=== PATIENT | female | born 1960 | race Hispanic/Latino ===

== ENCOUNTER 2025-03-21 07:49 | Emergency (ER) | payer OTHER ==
--- OUTSIDE RECORDS SUMMARY | 2025-03-21 07:54 | XMS REPORT | Continuity of Care Document ---
Author Name Unknown Address [address] [place] [address]. [address] [place] [address] [facility] Address [address] [facility]. 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 Name Role Phone HARI MANUEL Primary Care Physician Unavailab TATYANA Estes Attending Clinician Unavailable [id number] Attending Clinician Unavailable RAFAL COURTNEY Attending Clinician Unavailable LAB90 Attending Clinician Unavailable BROCK STEINER Attending Clinician Unavailable CYNDEE ROSS Attending Clinician Unava ilDESMOND Saavedra Attending Clinician Unavailable [email or web address] Attending Clinician Unavailcourt Morales MD, Cynthia Dowell Attending Clinician [phone] Radiology Attending Clinician Unavailable RADIOLOGY Attending Clinician Unavailable Doctor Unassigned, [place] Attending Clinician U navailable [email or web address] Admitting Clinician Unavailcourt kim Payers Payer Name Policy Type Policy Number Effective Date Expirati on Date Source AETNA CATHERINE PPO 5 [id number] 2025 00:00:00 AETNA 2 [id number] 2022 00:00:00 AETNA [id number] AETNA CHOICE POS II [id number] 2018 00:00:00 Problems Condition Name Condition Details Condition Category Status Onset Date Resolution Date Last Treatment Date Treating Clinician Comments Source Neuropathy Neuropathy Disease Active 2025-0 8-12 00:00: 00 Kendra Paez - Externa jeane Lipoma of right lower extremity Lipoma of right lower extremity Disease Active 3-04 00:00: 00 Kendra Paez - Externa jeane Pain of right hip Pain of right hip Disease Active 8 00:00: 00 Kendra Paez - Externa jeane Pain of right hip Pain of right hip Disease Active 01-27 00:00: 00 Kendra Mosquera Externa jeane Elevated liver function tests Elevated liver function tests Disease Active 8 00:00: 00 Kendra Paez - Externa jeane Well adult exam Well adult exam Disease Active 01-27 00:00: 00 Kendra Mosquera Externa jeane Vaginal atrophy Vaginal atrophy Disease Active 11-03 00:00: 00 [facility] Depression , unspecifie d depression type Depression , unspecifie d depression type Disease Active 11-03 00:00: 00 [facility] Well woman exam with routine gynecologi alonzo exam Well woman exam with routine gynecologi alonzo exam Disease Active 11-03 00:00: 00 [facility] Type 2 diabetes mellitus without complicati on Type 2 diabetes mellitus without complicati on Disease Active 10-02 00:00: 00 [facility] Elevated liver enzymes Elevated liver enzymes Disease Active 03-21 00:00: 00 [facility] Diabetes mellitus type 2, uncontroll ed, without complicati ons Diabetes mellitus type 2, uncontroll ed, without complicati ons Disease Active 10-17 00:00: 00 Overview: ICD10 Diagnosis Term 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 [facility] HLD (hyperlipi demia) HLD (hyperlipi demia) Disease Active 10-17 00:00: 00 [facility] Metabolic syndrome X Metabolic syndrome X Disease Active 10-17 00:00: 00 [facility] DM type 2 with diabetic mixed hyperlipid emia (multi HCC) DM type 2 with diabetic mixed hyperlipid emia (multi HCC) Disease Active Kendra Seybold - Externa l Vitamin D deficiency Vitamin D deficiency Disease Active Kendra Seybold - Externa l Fatty liver Fatty liver Disease Active Kendra Seybold - Externa l Obesity Obesity Disease Active Kendra Seybold - Externa l History of colon polyps History of colon polyps Disease Active Kendra Seybold - Externa l Psoriasis Psoriasis Disease Active Augustin kong Seybold - Externa l Tobacco use Tobacco use Disease Active Kendra Seybold - Externa l Abnormal US (ultrasoun d) of abdomen Abnormal US (ultrasoun d) of abdomen Disease Resolve d 2023-06 2-10 00:00: 00 2024-08-30 00:00:00 2024-08-30 10:00:17 Kendra Seybold - Externa l Allergies, Adverse Reactions, Alerts Allergy Name Allergy Type Status Severity Reaction(s) Onset Date Inactive Date Treating Clinician Comments Source Codeine Propensi ty to adverse reaction s Active Nausea and Vomiting 10-17 00:00: 00 Other reaction( s): vomiting Kendra Augustybold - Externa l CODEINE DRUG INGREDI Active N/V 10-17 00:00: 00 [facility] Social History Social Habit Start Date Stop Date Quantity Comments Source Sexual orientation Aric chavez Philippe - External Gender identity Emily Paez - External ASSERTION Not Kendra Paez - External History of Occupation Kendra Paez - External History of tobacco use Cigarette Smoker Kendra walsh - External Alcoholic beverage intake 2025-02-07 00:00:00 2025-02-07 00:00:00 Current drinker of alcohol (finding) Kendra Paez - External Cigarettes smoked current (pack per day) - Reported 2024-01-28 00:00:00 2024-01-28 00:00:00 Kendra Paez - External Cigarette pack-years 2024-01-28 00:00:00 2024-01-28 00:00:00 Kendra Paez - External Tobacco use and exposure 2024-01-28 00:00:00 2024-01-28 00:00:00 Smokeless tobacco non-user Kendra Paez - External History of Social function 2024-01-28 00:00:00 2024-01-28 00:00:00 Kendra Paez - External Education 2024-01-28 00:00:00 2024-01-28 00:00:00 16 Kendra Martinez Alcohol Comment 2024-01-28 00:00:00 2024-01-28 00:00:00 occasionally Kendra Martinez Sex 2020-09-25 17:16:26 2020-09-25 17:16:26 Female (finding) Kendra Paez - Juan Alcohol intake 2019-05-11 00:00:00 2019-05-11 00:00:00 Current drinker of alcohol (finding) [facility] Sex assigned at 1960 00:00:00 1960 00:00:00 Kendra Martinez Smoking Status Start Date Stop Date Source Occasional tobacco smoker 2024-01-28 00:00:00 Kendra Paez - Juan Former smoker 2019-05-11 00:00:00 2019-05-11 00:00:00 [facility] Medications Ordered Medication Name Filled Medication Name Start Date Stop Date Current Medication? Ordering Clinician Indication Dosage Frequency Signature (SIG) Comments Components Source Cholecalcif chan 25 MCG (1000 UT) oral Capsule Cholecalcif chan 25 MCG (1000 UT) oral Capsule 02-07 10:44: 22 Yes Take by mouth. Kendra ching Gabapentin 100 MG oral Capsule Gabapentin 100 MG oral Capsule 02-07 00:00: 00 Yes [id number] 100mg QD Take 1 capsule (100 mg total) by mouth daily as needed (pain). Kendra ching KETOCONAZOL E, TOPICAL, 2 % apply externally Shampoo KETOCONAZOL E, TOPICAL, 2 % apply externally Shampoo 01-05 00:00: 00 Yes [id number] 10mL Apply 10 mL topically twice a week. Kendra ching Cholecalcif chan 25 MCG (1000 UT) oral Capsule 12-29 10:28: 17 Yes Take by mouth. Kendra Veliza jeane Tirzepatide 5 MG/0.5ML subcutaneou s Solution Auto-inject or Tirzepatide 5 MG/0.5ML subcutaneou s Solution Auto-inject or 12-29 00:00: 00 Yes [id number] 3 5mg Q1W Inject 5 mg into the skin once a week. Kendra Veliza l Lancets 33G does not apply Misc Lancets 33G does not apply Misc 11-28 00:00: 00 Yes [id number] 3 1U QD 1 unit by does not apply route daily as needed. Kendra Paez - Externa l Glucose Blood in vitro Strip Glucose Blood in vitro Strip 11-28 00:00: 00 Yes 1{each} QD 1 each by other route daily. Kendra Paez - Externa l Tirzepatide 2.5 MG/0.5ML subcutaneou s Solution Auto-inject or 5-13 00:00: 00 12-29 00:00 :00 No [id number] 3 2.5mg Q1W Inject 2.5 mg into the skin once a week. Kendra Mosquera Externa l Cholecalcif chan 25 MCG (1000 UT) oral Capsule 4-10 15:17: 04 Yes Take by mouth. Kendra Paez - Externa l Cholecalcif chan 25 MCG (1000 UT) oral Capsule 3-04 09:41: 13 Yes Take by mouth Kendra ching Tirzepatide 2.5 MG/0.5ML subcutaneou s Solution Auto-inject or 3-04 00:00: 00 Yes [id number] 3 2.5mg Q1W Inject 2.5 mg into the skin once a week. Kendra Mosquera Externa l Mounjaro 2.5 MG/0.5ML subcutaneou s Solution Auto-inject or 1-09 00:00: 00 08-30 00:00 :00 No [id number] 3 2.5mg Q1W Inject 2.5 mg into the skin once a week. Kendra Paez - Externa l Cholecalcif chan 25 MCG (1000 UT) oral Capsule 2023-06 2-10 08:56: 48 Yes Take by mouth Kendra Paez - Externa l Gabapentin 100 MG oral Capsule Gabapentin 100 MG oral Capsule 2024-1 2-10 00:00: 00 02-07 00:00 :00 No [id number] 100mg QD Take 1 capsule (100 mg total) by mouth daily as needed (pain). Kendra ching Cholecalcif chan 25 MCG (1000 UT) oral Capsule 2023-06 10:07: 54 Yes Take by mouth Kendra ching Ketoconazol e 2 % apply externally Cream Ketoconazol e 2 % apply externally Cream 2023-06 00:00: 00 Yes [id number] Apply to affected areas on the face twice daily for up to two weeks. Then apply to affected areas as needed.. Kendra ching Hydrocortis one 2.5 % apply externally Cream Hydrocortis one 2.5 % apply externally Cream 2023-06 00:00: 00 Yes [id number] Apply to affected areas on the face twice daily for up to two weeks. Then apply to affected areas as needed.. Kendra ching Ciclopirox 1 % apply externally Shampoo 2023-06 00:00: 00 06-07 00:00 :00 No [id number] Shampoo scalp the every other day PRN flares. Leave on the scalp for 5-15 minutes before rinsing.. Kendra ching Clobetasol Propionate 0.05 % apply externally Solution 2023-06 00:00: 00 06-07 00:00 :00 No [id number] Apply to affected areas on the SCALP twice daily for four weeks. Then use as needed to affected areas.. Kendra ching Ciclopirox 0.77 % apply externally Gel 2023-06 00:00: 00 06-07 00:00 :00 No [id number] Apply twice daily to affected nails until clearance. . Kendra Veliza jeane Blood Glucose Monitoring Suppl (Blood Glucose Monitor System) w/Device does not apply Kit 2023-06 0-03 00:00: 00 Yes [id number] 3 One touch Verio Glucometer Pt is to check blood sugars before meals ICD E11.9. Kendra Veliza jeane Blood Glucose Monitoring Suppl (Blood Glucose Monitor System) w/Device does not apply Kit Blood Glucose Monitoring Suppl (Blood Glucose Monitor System) w/Device does not apply Kit 2023-06 0 00:00: 00 Yes [id number] 3 One touch Verio Glucometer Pt is to check blood sugars before meals ICD E11.9. Kendra ching Cholecalcif chan 25 MCG (1000 UT) oral Capsule 03-17 11:04: 03 Yes Take by mouth Kendra ching Glucose Blood (OneTouch Ultra) in vitro Strip 03-17 00:00: 00 Yes [id number] 3 1{each} 1 each by other route See Admin Instructio ns. Kendra ching Lancets 33G does not apply Misc 03-17 00:00: 00 Yes [id number] 3 1U QD 1 unit by does not apply route daily as needed. Kendra ching Glimepiride 4 MG oral Tablet Glimepiride 4 MG oral Tablet 03-17 00:00: 00 Yes [id number] 3 4mg Q.5D Take 1 tablet (4 mg total) by mouth 2 times daily. Kendra ching Empaglifloz in (Jardiance) 25 MG oral Tablet Empaglifloz in (Jardiance) 25 MG oral Tablet 03-17 00:00: 00 Yes [id number] 3 25mg QD Take 1 tablet (25 mg total) by mouth daily. Kendra ching Cholecalcif chan 25 MCG (1000 UT) oral Capsule 01-27 08:21: 25 Yes Take by mouth Kendra ching Sitagliptin Phosphate (Januvia) 100 MG oral Tablet 01-27 08:21: 07 01-27 00:00 :00 No Kendra ching Triamcinolo ne Acetonide 0.1 % apply externally Cream Triamcinolo ne Acetonide 0.1 % apply externally Cream 01-27 00:00: 00 02-07 00:00 :00 No [id number] 1{appli cation} QD Apply 1 Applicatio n topically daily. Kendra ching KETOCONAZOL E, TOPICAL, 2 % apply externally Shampoo 01-27 00:00: 00 06-07 00:00 :00 No [id number] 10mL Apply 10 mL topically twice a week. Kendra ching OZEMPIC (0.25 or 0.5 mg/dose) 2 mg/3 mL SQ Solution Pen-Injecto r 6-03 00:00: 00 Yes .5mg Q1W Inject 0.5 mg into the skin once a week. Kendra ching Simvastatin 40 MG oral Tablet 8-18 00:00: 00 01-27 00:00 :00 No 40mg Take 40 mg by mouth every evening Kendra ching Jardiance 25 MG oral Tablet 8-14 00:00: 00 03-17 00:00 :00 No 25mg QD Take 1 tablet (25 mg total) by mouth daily. Kendra ching Glimepiride 4 MG oral Tablet 7-14 00:00: 00 03-17 00:00 :00 No 4mg Q.5D Take 1 tablet (4 mg total) by mouth 2 times daily. Kendra ching Rybelsus 3 MG oral Tablet 6-28 00:00: 00 01-27 00:00 :00 No See Admin Instructio ns PLEASE SEE ATTACHED FOR DETAILED DIRECTIONS Kendra ching OneTouch Ultra in vitro Strip 110 00:00: 00 03-17 00:00 :00 No USE DIRECTED Kendra ching CYANOCOBALA MIN, VITAMIN B-12, (B-12 DOTS ORAL) 2018-06 19:22: 11 Yes Take by mouth. [facility] Cholecalcif chan, Vitamin D3, (VITAMIN D3) 1,000 unit Cap 2018-06 19:22: 10 Yes Take by mouth. [facility] omega-3 fatty acids-vitam in E (FISH OIL) 1,000 mg capsule 2018-06 19:22: 10 Yes 1g Take 1 g by mouth daily. [facility] ergocalcife rol, vitamin D2, (VITAMIN D ORAL) 2017-06 16:14: 00 Yes Take by mouth. [facility] sitaGLIPtin (JANUVIA) 100 mg tablet 2017-06 00:00: 00 Yes [id number] 100mg Take 1 tablet by mouth daily. [facility] glimepiride 4 mg tablet 2017-06 00:00: 00 Yes [id number] 4mg Take 1 tablet by mouth daily with breakfast. [facility] JARDIANCE 10 mg Tab 03-09 00:00: 00 Yes 1{tbl} Take 1 tablet by mouth daily. [facility] ketoconazol e 2 % cream 11-03 00:00: 00 Yes Apply to area(s) daily. [facility] triamcinolo ne acetonide 0.1 % cream 11-03 00:00: 00 Yes Apply to area(s) 2 (two) times daily. [facility] dicyclomine 20 mg tablet 09-24 00:00: 00 Yes TAKE 1 TABLET BY MOUTH 3 TIMES A DAY [facility] blood sugar diagnostic (ONETOUCH ULTRA TEST) strip 09-14 00:00: 00 Yes [id number] CHECK THREE TIMES DAILY, DX:E11.9 [facility] lancets (ONE TOUCH DELICA) 33 gauge Misc 09-14 00:00: 00 Yes [id number] USE THREE TIMES DAILY, DX:E11.9 [facility] simvastatin 40 mg tablet 10-29 00:00: 00 Yes [id number] TAKE 1 TABLET BY MOUTH AT BEDTIME [facility] metformin ER 500 mg 24 hr tablet 10-29 00:00: 00 Yes [id number] 1000mg Take 2 tablets by mouth 2 (two) times daily with meals. [facility] Blood-Gluco se Meter (ONETOUCH ULTRA SYSTEM KIT) Kit 09-13 00:00: 00 Yes Use as directed [facility] Immunizations Ordered Immunization Name Filled Immunization Name Date Status Comments Source Influenza Virus Vaccine, No Preserv, age 6 months and up Influenza Virus Vaccine, No Preserv, age 6 months and up 2023-04-20 00:00:00 Completed Kendra Seybold - External Tdap- (Boostrix, Adacel) Tdap- (Boostrix, Adacel) 2023-01-29 00:00:00 Completed Kendra Seybold - External Influenza Virus Vaccine, No Preserv, age 6 months and up Influenza Virus Vaccine, No Preserv, age 6 months and up 2022-04-26 00:00:00 Completed Kendra Seybold - External Influenza Virus Vaccine, No Preserv, age 6 months and up Influenza Virus Vaccine, No Preserv, age 6 months and up 2021-04-01 00:00:00 Completed Kendra Seybold - External Influenza Virus Vaccine, No Preserv, age 6 months and up Influenza Virus Vaccine, No Preserv, age 6 months and up 2019-05-18 00:00:00 Completed Kendra Seybold - External Shingles SQ (Zostavax) Shingles SQ (Zostavax) 2016-06-16 00:00:00 Completed Kendra Seybold - External Influenza Virus Vaccine, No Preserv, age 6 months and up Unknown Completed Kendra Seybold - External Shingles SQ (Zostavax) Unknown Completed Kendra Seybold - External Influenza Virus Vaccine, No Preserv, age 6 months and up Unknown Completed Kendra Seybold - External Tdap- (Boostrix, Adacel) Unknown Completed Kendra Seybold - External Influenza Virus Vaccine, No Preserv, age 6 months and up Unknown Completed Kendra Seybold - External Shingles SQ (Zostavax) Unknown Completed Kendra Seybold - External Influenza Virus Vaccine, No Preserv, age 6 months and up Unknown Completed Kendra Seybold - External Tdap- (Boostrix, Adacel) Unknown Completed Kendra Seybold - External Influenza Virus Vaccine, No Preserv, age 6 months and up Unknown Completed Kendra Seybold - External Shingles SQ (Zostavax) Unknown Completed Kendra Seybold - External Influenza Virus Vaccine, No Preserv, age 6 months and up Unknown Completed Kendra Seybold - External Tdap- (Boostrix, Adacel) Unknown Completed Kendra Seybold - External Influenza Virus Vaccine, No Preserv, age 6 months and up Unknown Completed Kendra Seybold - External Shingles SQ (Zostavax) Unknown Completed Kendra Seybold - External Influenza Virus Vaccine, No Preserv, age 6 months and up Unknown Completed Kendra Seybold - External Tdap- (Boostrix, Adacel) Unknown Completed Kendra Seybold - External Influenza Virus Vaccine, No Preserv, age 6 months and up Unknown Completed Kendra Seybold - External Shingles SQ (Zostavax) Unknown Completed Kendra Seybold - External Influenza Virus Vaccine, No Preserv, age 6 months and up Unknown Completed Kendra Seybold - External Tdap- (Boostrix, Adacel) Unknown Completed Kendra Seybold - External Influenza Virus Vaccine, No Preserv, age 6 months and up Unknown Completed Kendra Seybold - External Shingles SQ (Zostavax) Unknown Completed Kendra Seybold - External Influenza Virus Vaccine, No Preserv, age 6 months and up Unknown Completed Kendra Seybold - External Tdap- (Boostrix, Adacel) Unknown Completed Kendra Seybold - External Influenza Virus Vaccine, No Preserv, age 6 months and up Unknown Completed Kendra Seybold - External Shingles SQ (Zostavax) Unknown Completed Kendra Seybold - External Tdap- (Boostrix, Adacel) Unknown Completed Kendra Seybold - External Vital Signs Vital Name Observation Time Observation Value Comments S ource Systolic blood pressure 2025-02-07 10:40:00 104 mm[Hg] Kendra Augustybo ld - External Diastolic blood pressure 2025-02-07 10:40:00 62 mm[Hg] Kendra Augustybo ld - External Heart rate 2025-02-07 10:40:00 71 /min Brittani beck Seybjillian - External Body temperature 2025-02-07 10:40:00 36.22 Ophelia Kendra ybold - External Respiratory rate 2025-02-07 10:40:00 16 /min Kendra ybold - External Body height 2025-02-07 10:40:00 152.4 cm Emily lay ybold - External Body weight 2025-02-07 10:40:00 70.852 kg Emily ey Seybold - External BMI 2025-02-07 10:40:00 30.51 kg/m2 Emily ey Seybold - External Oxygen saturation in Arterial blood by Pulse oximetry 2025-02-07 10:40:00 97 /min Kendra Erwino ld - External Systolic blood pressure 2024-12-29 15:22:00 108 mm[Hg] Kendra Seybo ld - External Diastolic blood pressure 2024-12-29 15:22:00 64 mm[Hg] Kendra Seybo ld - External Heart rate 2024-12-29 15:22:00 90 /min Augustinse y Seybold - External Body temperature 2024-12-29 15:22:00 36.5 Ophelia Kendra Seybold - External Respiratory rate 2024-12-29 15:22:00 18 /min Kendra Seybold - External Body height 2024-12-29 15:22:00 152.4 cm Emily ey Seybold - External Body weight 2024-12-29 15:22:00 70.761 kg Emily ey Seybold - External BMI 2024-12-29 15:22:00 30.47 kg/m2 Emily ey Seybold - External Body weight 2024-10-06 20:15:00 73.029 kg Emily ey Seybold - External BMI 2024-10-06 20:15:00 31.44 kg/m2 Emily ey Seybold - External Systolic blood pressure 2024-08-30 15:38:00 102 mm[Hg] Kendra Seybo ld - External Diastolic blood pressure 2024-08-30 15:38:00 68 mm[Hg] Kendra Seybo ld - External Heart rate 2024-08-30 15:38:00 58 /min Augustinse y Seybold - External Body temperature 2024-08-30 15:38:00 36.06 Ophelia Kendra Seybold - External Respiratory rate 2024-08-30 15:38:00 16 /min Kendra Seybold - External Body height 2024-08-30 15:38:00 152.4 cm Emily ey Seybold - External Body weight 2024-08-30 15:38:00 70.761 kg Emily ey Seybold - External BMI 2024-08-30 15:38:00 30.47 kg/m2 Emily ey Seybold - External Oxygen saturation in Arterial blood by Pulse oximetry 2024-08-30 15:38:00 98 /min Kendra Erwino ld - External Systolic blood pressure 2024-06-07 14:54:00 101 mm[Hg] Kendra Seybo ld - External Diastolic blood pressure 2024-06-07 14:54:00 63 mm[Hg] Kendra Seybo ld - External Heart rate 2024-06-07 14:54:00 72 /min Augustinse y Seybold - External Body temperature 2024-06-07 14:54:00 36.06 Ophelia Kendra Seybold - External Respiratory rate 2024-06-07 14:54:00 16 /min Kendra Seybold - External Body height 2024-06-07 14:54:00 152.4 cm Emily ey Seybold - External Body weight 2024-06-07 14:54:00 71.668 kg Emily ey Seybold - External BMI 2024-06-07 14:54:00 30.86 kg/m2 Emily ey Seybold - External Oxygen saturation in Arterial blood by Pulse oximetry 2024-06-07 14:54:00 98 /min Kendra Erwino ld - External Systolic blood pressure 2024-03-17 16:02:00 102 mm[Hg] Kendra Seybo ld - External Diastolic blood pressure 2024-03-17 16:02:00 60 mm[Hg] Kendra Augustybo ld - External Heart rate 2024-03-17 16:02:00 77 /min Augustinse y Seybold - External Body temperature 2024-03-17 16:02:00 36.39 Ophelia Kendra Seybold - External Respiratory rate 2024-03-17 16:02:00 15 /min Kendra Seybold - External Body height 2024-03-17 16:02:00 152.4 cm Emily ey Seybold - External Body weight 2024-03-17 16:02:00 71.215 kg Emily ey Seybold - External BMI 2024-03-17 16:02:00 30.66 kg/m2 Emily ey Seybold - External Oxygen saturation in Arterial blood by Pulse oximetry 2024-03-17 16:02:00 97 /min Kendra Brown ld - External Systolic blood pressure 2024-01-28 13:18:00 103 mm[Hg] Kendra Brown ld - External Diastolic blood pressure 2024-01-28 13:18:00 67 mm[Hg] Kendra Brown ld - External Body temperature 2024-01-28 13:18:00 36.39 Ophelia Kendra Paez - External Respiratory rate 2024-01-28 13:18:00 16 /min Kendra Paez - External Body height 2024-01-28 13:18:00 152.4 cm Emily lay Seybjillian - External Body weight 2024-01-28 13:18:00 71.215 kg Emily lay Seybold - External BMI 2024-01-28 13:18:00 30.66 kg/m2 Emily lay Seybold - External Oxygen saturation in Arterial blood by Pulse oximetry 2024-01-28 13:18:00 100 /min Kendra Brown ld - External Procedures Procedure Date / Time Performed Performing Clinicia n Source COMP. METABOLIC PANEL (14) 2025-02-07 00:00:00 Kendra Paez - External BI SELF-REFERRED SCREENING MAMMOGRAM BILATERAL 2020-05-18 20:16:00 Hari Manuel [facility] ASSIGNMENT OF BENEFITS 2020-05-18 19:45:37 Docto r Unassigned, [place] [facility] Plan of Care Planned Activity Planned Date Details Comments Source Encounters Start Date/Time End Date/Time Encounter Type Admission Type Attending [facility] Care Facility Care Department Encounter ID Source 2025-05-10 09:00:00 2025-05-10 09:00:00 Outpatient TATYANA SANTOS [id number] Kendra wilfrido 2025-04-04 10:00:00 2025-04-04 10:00:00 Outpatient TATYANA SANTOS [id number] Kendra Paez 2025-03-11 00:00:00 2025-03-11 00:00:00 Outpatient TATYANA SANTOS [id number] Kendra wilfrido 2025-02-13 00:00:00 2025-02-13 00:00:00 Outpatient PREZAS, TATYANA SERRANOSEY [id number] [facility] 2025-02-07 11:15:00 2025-02-07 11:15:00 Outpatient [id number] KENDRA MERAZ [id number] [facility] 2025-02-07 10:45:00 2025-02-07 10:45:00 Outpatient PREZAS, TATYANA SERRANOSEY [id number] [facility] 2025-01-03 00:00:00 2025-01-03 00:00:00 Outpatient PREZAS, TATYANA SERRANOSEY [id number] [facility] 2025-01-03 00:00:00 2025-01-03 00:00:00 Outpatient PREZAS, TATYANA SERRANOSEY [id number] [facility] 2024-12-29 11:20:00 2024-12-29 11:20:00 Outpatient [id number] KENDRA MERAZ [id number] [facility] 2024-12-29 10:15:00 2024-12-29 10:15:00 Outpatient PREZAS, TATYANA MERAZ KENDRA [id number] [facility] 2024-12-27 00:00:00 2024-12-27 00:00:00 Outpatient PREZAS, TATYANA MERAZ KENDRA [id number] [facility] 2024-12-21 00:00:00 2024-12-21 00:00:00 Outpatient PREZAS, TATYANA MERAZ KENDRA [id number] [facility] 2024-12-14 00:00:00 2024-12-14 00:00:00 Outpatient PREZAS, TATYANA MERAZ KENDRA [id number] [facility] 2024-11-28 00:00:00 2024-11-28 00:00:00 Outpatient PREZAS, TATYANA MERAZ KENDRA [id number] [facility] 2024-11-07 00:00:00 2024-11-07 00:00:00 Outpatient PREZAS, TATYNAA MERAZ KENDRA [id number] [facility] 2024-10-06 14:30:00 2024-10-06 14:30:00 Outpatient ROZ, RAFAL KENDRA MERAZ [id number] Kendra Seybjillian 2024-10-06 14:25:00 2024-10-06 14:25:00 Outpatient KENDRA KENDRA [id number] Kendra Augustybjillian 2024-09-30 00:00:00 2024-09-30 00:00:00 Outpatient PREZAS, TATYANA KENDRA KENDRA [id number] Kendra Seybold 2024-09-26 10:55:00 2024-09-26 10:55:00 Outpatient [id number] KENDRA MERAZ [id number] Kendra Seybjillian 2024-09-06 00:00:00 2024-09-06 00:00:00 Outpatient PREZAS, TATYANA KENDRA MERAZ [id number] Kendra Augustybjillian 2024-08-30 09:30:00 2024-08-30 09:30:00 Outpatient PREZAS, TATYANA KENDRA MERAZ [id number] [facility] 2024-07-22 00:00:00 2024-07-22 00:00:00 Outpatient BROCK STEINER KENDRA MERAZ [id number] Kenrda Seybjillian 2024-07-11 14:00:00 2024-07-11 14:00:00 Outpatient KENDRA MERAZ [id number] Kendra Seybold 2024-07-07 00:00:00 2024-07-07 00:00:00 Outpatient PREZAS, TATYANA KENDRA MERAZ [id number] Kendra Seybold 2024-07-07 00:00:00 2024-07-07 00:00:00 Outpatient PREZAS, TATYANA KENDRA MERAZ [id number] Kendra Seybold 2024-07-07 00:00:00 2024-07-07 00:00:00 Outpatient PREZAS, TATYANA KENDRA MERAZ [id number] Kendra Seybold 2024-07-06 00:00:00 2024-07-06 00:00:00 Outpatient PREZAS, TATYANA KENDRA MERAZ [id number] Kendra Seybold 2024-06-21 09:00:00 2024-06-21 09:00:00 Outpatient KENDRA MERAZ [id number] Kendra Augustjillian 2024-06-09 00:00:00 2024-06-09 00:00:00 Outpatient PREZAS, TATYANA MERAZ KENDRA [id number] Kendra Paez 2024-06-08 00:00:00 2024-06-08 00:00:00 Outpatient PREZAS, TATYANA MERAZ KENDRA [id number] Kendra Augustybjillian 2024-06-07 09:35:00 2024-06-07 09:35:00 Outpatient LAB90 KENDRA KENDRA [id number] Kendra Augustybjillian 2024-06-07 08:45:00 2024-06-07 08:45:00 Outpatient PREZAS, TATYANA MERAZ KENDRA [id number] Kendra Augustjillian 2024-06-03 00:00:00 2024-06-03 00:00:00 Outpatient PREZAS, TATYANA MERAZ KENDRA [id number] [facility] 2024-06-02 10:00:00 2024-06-02 10:00:00 Outpatient PREZAS, TATYANA MERAZ KENDRA [id number] [facility] 2024-05-30 00:00:00 2024-05-30 00:00:00 Outpatient PREZAS, TATYANA MERAZ KENDRA [id number] [facility] 2024-05-30 00:00:00 2024-05-30 00:00:00 Outpatient PREZAS, TATYANA MERAZ KENDRA [id number] [facility] 2024-05-30 00:00:00 2024-05-30 00:00:00 Outpatient PREZAS, TATYANA KENDRA MERAZ [id number] [facility] 2024-05-25 00:00:00 2024-05-25 00:00:00 Outpatient PREZAS, TATYANA KENDRA KENDRA [id number] Kendra Augustybold 2024-05-25 00:00:00 2024-05-25 00:00:00 Outpatient PREZAS, TATYANA KENDRA MERAZ [id number] Kendra Augustybold 2024-05-24 08:30:00 2024-05-24 08:30:00 Outpatient KENDRA MERAZ [id number] [facility] 2024-05-09 10:15:00 2024-05-09 10:15:00 Outpatient CYNDEE ROSS KENDRA [id number] [facility] 2024-05-03 07:15:00 2024-05-03 07:15:00 Outpatient KENDRA KENDRA [id number] Kendra Augustybjillian 2024-04-04 08:30:00 2024-04-04 08:30:00 Outpatient KENDRA KENDRA [id number] [facility] 2024-03-31 00:00:00 2024-03-31 00:00:00 Outpatient PREZAS, TATYANA MERAZ KENDRA [id number] [facility] 2024-03-30 00:00:00 2024-03-30 00:00:00 Outpatient PREZAS, TATYANA KNEDRA KENDRA [id number] [facility] 2024-03-17 11:15:00 2024-03-17 11:15:00 Outpatient PREZAS, TATYANA KENDRA KENDRA [id number] [facility] 2024-03-04 14:25:00 2024-03-04 14:25:00 Outpatient KENDRA KENDRA [id number] [facility] 2024-02-26 00:00:00 2024-02-26 00:00:00 Outpatient PREZAS, TATYANA MERAZ KENDRA [id number] [facility] 2024-02-26 00:00:00 2024-02-26 00:00:00 Outpatient PREZAS, TATYANA [facility]DRA MERAZ [id number] [facility] 2024-02-01 00:00:00 2024-02-01 00:00:00 Outpatient PREZAS, TATYANA KENDRA KENDRA [id number] [facility] 2024-02-01 00:00:00 2024-02-01 00:00:00 Outpatient PREZAS, TATYANA KENDRA KENDRA [id number] [facility] 2024-01-28 09:00:00 2024-01-28 09:00:00 Outpatient LAB90 KENDRA MERAZ [id number] [facility] 2024-01-28 08:15:00 2024-01-28 08:15:00 Outpatient PREZAS, TATYANA KENDRA KENDRA [id number] Kendra Paez 2024-01-18 09:30:00 2024-01-18 09:30:00 Outpatient TTAYANA SANTOS KNEDRA [id number] Kendra Paez 2023-11-13 09:30:00 2023-11-13 09:30:00 Outpatient R DESMOND BRYSON [facility] [id number] [facility] 2022-02-20 09:30:00 2022-02-20 09:30:00 Outpatient LAB90 KENDRA KENDRA [id number] [facility] 2022-02-20 08:45:00 2022-02-20 09:15:00 Office Visit Cynthia Morales [id number] [facility] 2020-09-02 13:35:00 2020-09-02 13:35:00 Outpatient [facility] [id number] [facility] 2020-08-05 13:40:00 2020-08-05 13:40:00 Outpatient [facility] [id number] [facility] 2020-05-18 13:40:00 2020-05-18 23:59:00 Hospital Encounter Radiology [facility] [id number] [facility] 2020-05-18 00:00:00 2020-05-18 00:00:00 Outpatient R RADIOLOGY [facility] [id number] [facility] 2020-05-18 00:00:00 2020-05-18 00:00:00 Orders Only Doctor Unassigned, [place] [facility] [id number] [facility] Results Test Description Test Time Test Comments Results Resul t Comments Source BI SELF-REFERRED SCREENING MAMMOGRAM BILATERAL 2020-05-18 22:39:20 Examination:BI SELF-REFERRED SCREENING MAMMOGRAM BILATERAL History:Patient is 60 year old and is seen for: ?Screening mammogram, encounter for. Computer-aided detection (CAD) utilized. Comparisons: 05/11/2019 BI SCREENING MAMMOGRAM BILATERAL and 12/22/2017 BI SCREENING MAMMOGRAM BILATERAL Findings:The breasts are almost entirely fatty. There is no evidence of suspicious masses, calcifications, or other abnormal findings. Impression:No mammographic evidence of malignancy. Recommendation:An nual mammographic follow-up BI-RADS Category: Both 1 - Negative [facility] Notes Date/Time Note Provider Source 2025-02-07 11:04:36 [id number] 11:04:36* Patient Instructions* Tatyana Santos DO - 02/07/2025 11:04 AM CDT Neuropathy/hip pain/back pain - Symptoms suggest neuropathy related to hip and back issues - No skin irritation; physical exam consistent with neuropathy - Advised to resume physical therapy exercises long-term - Gabapentin prescribed, once daily as needed - Referral to small engine specialist if symptoms persist Diabetes mellitus - A1c: 7.3 - On tirzepatide 5 mg, Jardiance 25 mg daily, and glimepiride 4 mg twice daily - Increased tirzepatide dosage for better diabetes control and weight loss; patient reports decreased appetite and improved eating habits. Recheck lab in 3 months. - Medication adjustments if weight plateaus in 4-6 weeks Fatty liver - History of fatty liver with slightly elevated liver function tests - Encouraged regular exercise and healthy diet for weight loss - Blood work today to assess kidney and liver function Obesity: BMI 30. Continue diet and lifestyle modification. * Attachments The following attachments cannot be sent through Care Everywhere. * Adult Advisor: Hip Pain Exercises (Polish) * Adult Advisor: Low Back Pain Exercises (Polish) * Medication Advisor: Gabapentin; Oral (Polish) KendraVenita [id number] 11:04:36* Tatyana Santos DO - 02/07/2025 10:45 AM CDT Patient and patient’s participants in attendance, if any, consented to the use of [employer]pling (T[employer]), a new technology product that uses artificial intelligence to assist the provider to document the patient encounter and to record this visit. Chief Complaint Skin Problem (Patient complains of a sensation on the left side for less than a month) History of Present Illness Lisa Gilbert is a(n) 64 year old female with a past medical history as documented below who presents today for evaluation of Skin Problem (Patient complains of a sensation on the left side for less than a month) . History of Present IllnessThe patient is a 64-year-old female presenting with multiple health concerns and a history of various treatments and symptoms. Lower Back Sensitivity- Sensitivity similar to a sunburn, without rash or bruising - Prescribed gabapentin for nerve pain but has not started it Hip Pain- History of hip pain resolved with stretching exercises Sciatic Pain- Improved with physical therapy and gabapentin - Has not continued physical therapy Kidney and Liver Function- Desires to ensure kidney and liver function are well - Reports no hematuria - Notes an unusual urine smell Appetite and Eating Habits- Started tirzepatide 5 mg, which has helped curb appetite - Avoiding late-night eating Sleep- Difficulty sleeping on the affected side - Sleeps on the other side Diabetes: A1c 7.3. Currently on glimepiride 4 mg twice daily, Jardiance 25 mg daily and Mounjaro 5 mg subcu weekly. Metro was recently adjusted. Results - Labs: - A1c: 7.3% - Kidney function: Normal (08/2024) - Liver function tests: Slightly elevated Current Medications Current Medications[1] Past Medical History Past Medical History[2] Past Surgical History Past Surgical History:Procedure Laterality Date APPENDECTOMY x2 COLONOSCOPY FLX DX W/COLLJ SPEC WHEN PFRMD 2023 Colon polyps removed. GI Dr. Steiner Family Medical History Family History[3] Social History Social History[4] Review of Systems Review of Systems Physical Exam BP 104/62 (Side: Right Arm, Position: SITTING, Cuff Size: Medium Adult) | Pulse 71 | Temp 97.2 ?F (36.2 ?C) (Tympanic) | Resp 16 | Ht 5' (1.524 m) | Wt 156 lb 3.2 oz (70.9 kg) | LMP (LMP Unknown) | SpO2 97% | BMI 30.51 kg/m? General: Alert, Conversant, cooperative, oriented x3.Heart: Regular rate and rhythm. No murmurs. Lungs: Clear to auscultation bilateral. Abdomen: Soft, nontender, nondistended. Extremities: Good range of motion to all extremities. No focal deficits. Skin: Normal skin turgor. Skin appears dry. No significant edema. Neuro: No focal deficits Mental: Patient appears in good mood. Intact judgement and insight. Patient interactive and appropriate. Assessment and Plan 1. Pain of right hip- Gabapentin 100 MG oral Capsule; Take 1 capsule (100 mg total) by mouth daily as needed (pain). Dispense: 30 capsule; Refill: 2 2. Neuropathy- Gabapentin 100 MG oral Capsule; Take 1 capsule (100 mg total) by mouth daily as needed (pain). Dispense: 30 capsule; Refill: 2 3. Acute right-sided low back pain with right-sided sciatica- Gabapentin 100 MG oral Capsule; Take 1 capsule (100 mg total) by mouth daily as needed (pain). Dispense: 30 capsule; Refill: 2 4. DM type 2 with diabetic mixed hyperlipidemia (multi HCC)- COMP. METABOLIC PANEL (14); Future 5. Elevated liver function tests- COMP. METABOLIC PANEL (14); Future 6. Fatty liver- COMP. METABOLIC PANEL (14); Future 7. Class 1 obesity due to excess calories with serious comorbidity and bodymass index (BMI) of 30.0 to 30.9 in adult Assessment & Plan Neuropathy/hip pain/back pain - Symptoms suggest neuropathy related to hip and back issues - No skin irritation; physical exam consistent with neuropathy - Advised to resume physical therapy exercises long-term - Gabapentin prescribed, once daily as needed - Referral to small engine specialist if symptoms persist Diabetes mellitus- A1c: 7.3 - On tirzepatide 5 mg, Jardiance 25 mg daily, and glimepiride 4 mg twice daily - Increased tirzepatide dosage for better diabetes control and weight loss; patient reports decreased appetite and improved eating habits. Recheck lab in 3 months. - Medication adjustments if weight plateaus in 4-6 weeks Fatty liver- History of fatty liver with slightly elevated liver function tests - Encouraged regular exercise and healthy diet for weight loss - Blood work today to assess kidney and liver function Obesity: BMI 30. Continue diet and lifestyle modification. Follow-up- In 3 months for diabetes management and physical examination Questions answered. Instructions/handouts given. Risks and benefits of any prescription medicines, including any side effects, addressed in detail with the patient. Patient understands and agrees with plan of care. Follow-Up Return in about 3 months (around 05/10/2025) for DM. TATYANA SANTOS DO [1]Current Outpatient Medications Medication Sig Dispense Refill Blood Glucose Monitoring Suppl (Blood Glucose Monitor System) w/Device does not apply Kit One touch Verio Glucometer Pt is to check blood sugars before meals ICD E11.9. 1 kit 0 Cholecalciferol 25 MCG (1000 UT) oral Capsule Take by mouth. Empagliflozin (Jardiance) 25 MG oral Tablet Take 1 tablet (25 mg total) by mouth daily. 90 tablet 3 Gabapentin 100 MG oral Capsule Take 1 capsule (100 mg total) by mouth daily as needed (pain). 30 capsule 2 Glimepiride 4 MG oral Tablet Take 1 tablet (4 mg total) by mouth 2 times daily. 180 tablet 3 Hydrocortisone 2.5 % apply externally Cream Apply to affected areas on the face twice daily for up to two weeks. Then apply to affected areas as needed.. 28 g 1 Ketoconazole 2 % apply externally Cream Apply to affected areas on the face twice daily for up to two weeks. Then apply to affected areas as needed.. 60 g 1 KETOCONAZOLE, TOPICAL, 2 % apply externally Shampoo Apply 10 mL topically twice a week. 120 mL 1 Tirzepatide 5 MG/0.5ML subcutaneous Solution Auto-injector Inject 5 mg into the skin once a week. 4 mL 1 Glucose Blood in vitro Strip 1 each by other route daily. 100 strip 3 Lancets 33G does not apply Misc 1 unit by does not apply route daily as needed. 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 Tobacco Use Smoking status: Some Days Current packs/day: 0.50 Average packs/day: 0.5 packs/day for 8.6 years (4.3 ttl pk-yrs) Types: Cigarettes Start date: 2016 Smokeless tobacco: Never Vaping Use Vaping status: Never Used Substance and Sexual Activity Alcohol use: Yes Comment: occasionally Drug use: Never Sexual activity: Not Currently Partners: Male Social Drivers of Health Received from [employer] ([place], [place], [place], [place])Food Insecurity Received from [employer] [place] Family and Community Support Received from [employer] ([place], [place], [place]) Housing Stability [facility]2025-08-12 11:04:36Upcoming Encounters Pending Results Name Type Priority Associated Diagnoses Date /Time COMP. METABOLIC PANEL (14) Lab Routine DM type 2 with diabetic mixed hyperlipidemia (multi HCC) Elevated liver function tests Fatty liver 02/07/2025 11:03 AM CDT Scheduled Orders Name Type Priority Associated Diagnoses Orde r Schedule COMP. METABOLIC PANEL (14) Lab Routine DM type 2 with diabetic mixed hyperlipidemia (multi HCC) Elevated liver function tests Fatty liver Expected: 02/07/2025, Expires: 05/08/2025 Health Maintenance Due Date Last Done Comments CT Colonography 1960 Cologuard 1960 FIT Tests 1960 Sigmoidoscopy 1960 Pneumococcal Vaccine: 50+ Years (1 of 2 - PCV) 02/15/1979 RSV Vaccines (1 - Risk 60-74 years 1-dose series) 2020 Zoster Vaccines (3 of 3) 07/26/2024 05/31/2024, 05/29 Diabetes: Retinopathy Screening 09/27/2024 09/28/2023 (Previously completed) Diabetes: Urine Protein Screening 01/27/2025 01/28/2024, 02/20/2022 Physical Exam 01/27/2025 01/28/2024 Influenza Vaccines (#1) 2025 05/31/20 24, 04/20/2023, 04/26/2022, Additional history exists COVID-19 Vaccine ( season) 2025 09/02/2020, 08/05/2020 Postponed from 02/28/2024 (Patient Refused) Diabetes: Hemoglobin A1C 03/31/2025 025, 09/26/2024, 06/07/2024, Additional history exists Creatinine Level (Kidney Function Test) 09/26/2025 09/26/2024, 06/07/2024, 01/28/2024, Additional history exists Lipid Panel 09/26/2025 09/26/2024, 05/29, 01/28/2024, Additional history exists Mammogram 10/04/2025 10/05/2023 (Prev iously completed), 05/11/2019, 12/22/2017 PAP SMEAR WITH HPV 10/04/2028 10/05/2023 (P reviously completed) COLONOSCOPY 02/08/2029 Colorectal Cancer Screening 02/08/2029 Tdap Vaccines 01/29/2033 01/29/2023 [id number] 11:04:36 Diagnosis Pain of right hip - Primary Neuropathy Mononeuritis of unspecified site Acute right-sided low back p ain with right-sided sciatica DM type 2 with diabetic mixed hyperlipidemia (multi HCC) Type II or unspecified type diabetes mellitus with other specified manifestations, not stated as uncontrolled Elevated liver function tests Other abnormal blood chemistry Fatty liver Other chronic nonalcoholic liver disease Class 1 obesity due to exces s calories with serious comorbidity and body mass index (BMI) of 30.0 to 30.9 in adult DM type 2 with diabetic mixed hyperlipidemia (multi HCC) Type II or unspecified type diabetes mellitus with other specified manifestations, not stated as uncontrolled Elevated liver function tests Other abnormal blood chemistry Fatty liver Other chronic nonalcoholic liver disease [facility]2025-08-12 11:04:36 [place] [id number] 10:44:23 Chief Complaint Patient presents with Skin Problem Patient complains of a sensation on the left side for less than a month Bhavna Owens MA T Sul[place] [id number] 10:28:18 Chief Complaint Patient presents with Diabetes 4 month follow up Arm Pain Pain under axilla right side Bhavna Owens MA [facility] Sulma [id number] 15:17:06 Chief Complaint Patient presents with Consultation Thumb Pain Lft thumb pain X 6 mths Leonor VILLAFUERTE [facility] Sulma [id number] 09:41:14 Chief Complaint Patient presents with Diabetes 8 week follow up DM and fatty liver OTHER Thumb pain Left hand REFILLS-NURSE/MD Medication refill Bhavna Owens MA IS [facility] KendraPhilippe [id number] 10:26:41 Chief Complaint Patient presents with Hair/Scalp Problem Benito Moffett [facility]"
[2025-03-21 08:15] LABS: Absolute Lymphocytes (CBC) 1.8 K/uL (0.7-4.9); Hematocrit 45.5 % (36.0-45.0); Hemoglobin 15.7 g/dL (12.0-15.0); MCH 31.3 pg (27.0-35.0); MCHC 34.4 g/dL (32.0-36.0); MCV 90.9 fL (80-100); MPV 8.1 fL (7.6-11.3); Nucleated RBC Absolute Count 0.0 (0-0); Nucleated Red Blood Cells % 0.1 % (0-0); RBC Red Blood Cell Count 5.01 M/uL (3.86-4.86); White Blood Count 7.20 thou/uL (4.3-10.9)
[2025-03-21] MEDS ORDERED: ASPIRIN 81 MG CHEWABLE TABLET ONE (08:24)
[2025-03-21] MEDS ORDERED: NA CHLORIDE 0.9% 1,000 ML ONE (08:24)
[2025-03-21] MEDS ORDERED: FAMOTIDINE 20 MG/2 ML VIAL IV ONE (08:24)
[2025-03-21 08:27] LABS: PT Prothrombin Time 12.8 SECONDS (10-13.0); Protime INR 1.14
[2025-03-21 08:38] LABS: ALT/SGPT 50.0 U/L (13-56); AST/SGOT 23.0 U/L (15-37); Albumin 4.1 g/dL (3.4-5.0); Albumin/Globulin Ratio 1.1 (1.1-1.8); Alkaline Phosphatase 118.0 U/L (45-117); Anion Gap 9.9 mEq/L (5.0-15.0); BUN Blood Urea Nitrogen 18.0 mg/dL (7-18); Bilirubin Indirect, Calculated 0.4 mg/dL (0.2-0.8); Globulin 3.9 g/dL (2.3-3.5); Glucose Level 191.0 mg/dL (74-106); Lipase 365.0 U/L (13-75); Magnesium 2.1 mg/dL (1.6-2.4); NT PRO-BNP 49.0 pg/mL (<125); Potassium 3.9 mEq/L (3.5-5.1); Troponin High Sensitivity 3.2 pg/mL (<58.9)
--- NOTE | 2025-03-21 08:46 | RAD REPORT ---
EXAMINATION: ONE VIEW CHEST XR CLINICAL INDICATION: Female, 65 years old.,ABDOMINAL DISTENTION TECHNIQUE: Frontal chest projection is submitted. Examination is limited by patient positioning and t echnique. COMPARISON: 03/09/2018 FINDINGS: The lungs are well inflated and clear. No pneumothorax or sizable effusion. The heart is normal in s ize. Mediastinal contours are unremarkable. IMPRESSION: No acute intrathoracic abnormalities.
[2025-03-21] MEDS ORDERED: MECLIZINE HCL 12.5 MG TAB ONE (09:30)
[2025-03-21] MEDS ORDERED: ONDANSETRON 4 MG/2 ML VIAL ONE (09:30)
--- NOTE | 2025-03-21 10:38 | RAD REPORT ---
EXAM: CT Head Brain Wo Cont HISTORY: DIZZINESS COMPARISON: 01/14/2012 TECHNIQUE: Multiple contiguous axial images were obtained for a CT of the brain without contrast. Sag ittal and coronal reformats were performed. One or more of the following dose reduction techniques were used: Automated exposure control, adjus tment of the mA and kV according to patient size, and iterative reconstruction. Unless otherwise specified, incidental findings do not require dedicated imaging follow-up. FINDINGS: No evidence of hydrocephalus, intracranial hemorrhage, or extra-axial fluid collection. The brain is normal in morphology. The calvarium is intact. The visualized paranasal sinuses and mastoid air cells are essentially clear . IMPRESSION: No evidence of acute intracranial abnormality.
--- NOTE | 2025-03-21 10:40 | RAD REPORT ---
EXAM: CT Chest For Pe Angio TECHNIQUE: CT angiogram of the chest was performed following intravenous contrast administration, inc luding sagittal and coronal as well as maximum intensity projection reformats. One or more of the following dose reduction techniques were used: Automated exposure control, adjustment of the mA and k V according to patient size, and iterative reconstruction. Unless otherwise specified, incidental findings do not require dedicated imaging follow-up. INDICATION: [facility] MAIN DYSPNEA Bed Name: 7 N COMPARISON: Chest radiograph of the same day. FINDINGS: LINES/TUBES: None. PULMONARY ARTERIES: Main pulmonary arteries are normal in caliber. No filling defects within the pul monary arteries to suggest pulmonary embolus. LUNGS AND AIRWAYS: The lungs and central airways are normal without focal abnormality. PLEURA: No effusion or pneumothorax. HEART AND MEDIASTINUM: The visualized thyroid gland is normal. No mediastinal, hilar, or axillary lym phadenopathy. Heart is unremarkable. No pericardial effusion. SOFT TISSUES AND BONES: No acute osseous abnormality. No significant soft tissue finding. UPPER ABDOMEN: Unremarkable. IMPRESSION: No evidence of acute central pulmonary emboli. No suspicious intrathoracic findings..
--- NOTE | 2025-03-21 10:54 | ER ---
Nurse's Notes [facility] Name: Lisa Bruno Age: 65 yrs Sex: Female : 1960 Arrival Date: 03/21/2025 Time: 07:49 Bed 7 Private MD: Diagnosis: Benign paroxysmal vertigo, unspecified ear;Vomiting;Dyspnea Presentation: 03/21 08:00 Chief complaint: Patient states: SOB, malaise, nausea started last night. N/V, sweats, ll1 feeling worse started at 5 AM. Coronavirus screen: Client denies travel out of the [place] in the last 14 days. fatigue, nausea, vomiting. Client presents with at least one sign or symptom that may indicate coronavirus-19. Standard/surgical mask placed on the client. Ebola Screen: Patient denies travel to an Ebola-affected area in the 21 days before illness onset. Initial Sepsis Screen: Does the patient meet any 2 criteria? No. Patient's initial sepsis screen is negative. Does the patient have a suspected source of infection? No. Patient's initial sepsis screen is negative. Risk Assessment: Do you want to hurt yourself or someone else? Patient reports no desire to harm self or others. Onset of symptoms was March 20, 2025. 08:00 Method Of Arrival: Ambulatory ll1 08:00 Acuity: ANTONIA 3 ll1 Triage Assessment: 07:53 General: Appears distressed, uncomfortable, Behavior is calm, cooperative, appropriate ll1 for age, Reports feeling ill for fatigue for. Pain: Denies pain. Neuro: Reports weakness. Respiratory: Reports shortness of breath. GI: Reports nausea, vomiting. Historical: - Allergies: 08:00 Codeine; ll1 - Home Meds: 08:00 ozempic [Active]; ll1 - PMHx: 08:00 Diabetes mellitus; ll1 - PSHx: 08:00 Appendectomy; ll1 - Immunization history:: Adult Immunizations up to date. - Infectious Disease History:: Denies. - Social history:: Smoking status: Patient reports the use of cigarette tobacco products, smokes .25 packs per day. Screenin:37 [facility] ED Fall Risk Assessment (Adult) History of falling in the last 3 months, ap3 including since admission No falls in past 3 months (0 pts) Confusion or Disorientation No (0 pts) Intoxicated or Sedated No (0 pts) Impaired Gait No (0 pts) Mobility Assist Device Used No (0 pt) Altered Elimination No (0 pt) Score/Fall Risk Level 0 - 2 = Low Risk Oriented to surroundings, Maintained a safe environment, Educated pt \T\ family on fall prevention, incl call for assistance when getting out of bed, Assessed \T\ reinforced patient's understanding of fall precautions, Hourly rounding (assess needs \T\ fall precautionary measures) done, Used ambulatory aids as needed (educated on \T\ assisted with). Abuse screen: Denies threats or abuse. Nutritional screening: No deficits noted. Tuberculosis screening: No symptoms or risk factors identified. Assessment: 11:38 GI: Abdomen is non-distended. ap3 Vital Signs: 08:00 BP 134 / 74; Pulse 79; Resp 16; Temp 97.6; Pulse Ox 100% on R/A; Weight 72.57 kg; ll1 Height 5 ft. 0 in. ; Pain 0/10; 10:53 BP 122 / 58; Pulse 75; Resp 16; Pulse Ox 98% ; Pain 0/10; pm7 11:39 BP 121 / 68; Pulse 83; Resp 17; Pulse Ox 100% ; ap3 08:00 Body Mass Index 31.25 (72.57 kg, 152.4 cm) ll1 08:00 Pain Scale: Adult ll1 10:53 Pain Scale: Adult pm7 NIH Stroke Scale Scores: 09:54 NIHSS Score: 0 [facility] ED Course: 07:51 Patient arrived in ED. mr 07:51 Arm band placed on Patient placed in an exam room, on a stretcher. 1 07:52 Curtis Woods MD is Attending Physician. [facility] 07:59 Jenni Smith, DAHLIA is Primary Nurse. ll1 08:02 Triage completed. ll1 08:13 Patient has correct armband on for positive identification. Placed in gown. Bed in low ap3 position. Call light in reach. Side rails up X2. Client placed on continuous cardiac and pulse oximetry monitoring. NIBP monitoring applied. software test engineer on. Pulse ox on. NIBP on. Door closed. Noise minimized. Warm blanket given. Pillow given. 08:13 EKG done, by ED staff, reviewed by Curtis Woods MD. ap3 08:18 XRAY Chest (1 view) In Process Unspecified. EDMS 10:10 CT Head Brain wo Cont In Process Unspecified. EDMS 10:10 CT Chest For PE Angio In Process Unspecified. EDMS 10:21 US Carotid Artery Bilateral In Process Unspecified. EDMS 10:53 Nick Theodore MD is Referral Physician. [facility] 10:54 Chloe Reyes MD is Referral Physician. rajan 11:38 Provided Education on: discharge instructions. ap3 11:38 No provider procedures requiring assistance completed. IV discontinued, intact, ap3 bleeding controlled, No redness/swelling at site. Pressure dressing applied. Administered Medications: 08:34 Drug: NS 0.9% IV 1000 ml IV at 1000 ml once; to be given as a bolus over 60 minutes ll1 Route: IV; Rate: 1000 ml; Site: right antecubital; 09:37 Follow up: Response: No adverse reaction; IV Status: Completed infusion; IV Intake: ll1 1000ml 08:35 Drug: Aspirin PO Chewable Tablet 324 mg PO once; 81 mg tablets x 4 Route: PO; ll1 09:37 Follow up: Response: No adverse reaction ll1 08:35 Drug: Famotidine IVP 20 mg IVP once; dilute with 10 mL 0.9% NaCl; give over 2 minutes ll1 Route: IVP; Site: right antecubital; 09:37 Follow up: Response: No adverse reaction ll1 09:36 Drug: Meclizine PO 50 mg PO once Route: PO; ll1 11:39 Follow up: Response: No adverse reaction ap3 09:37 Drug: Ondansetron IVP 8 mg IVP once; over 2 minutes Route: IVP; Site: right antecubital;ll1 11:39 Follow up: Response: No adverse reaction; Nausea is decreased ap3 Medication: 11:39 VIS not applicable for this client. ap3 Intake: 09:37 IV: 1000ml; Total: 1000ml. ll1 Outcome: 10:53 Discharge ordered by . rajan 11:38 Discharged to home ambulatory, with family, ap3 11:38 Condition: good 11:38 Discharge instructions given to patient, Instructed on discharge instructions, follow up and referral plans. medication usage, Demonstrated understanding of instructions, follow-up care, medications, Prescriptions given X 3, 11:47 Patient left the ED. ss NIH Stroke Scale - NIH Stroke Score Date: 03/21/2025 Time: 09:54 Total Score = 0 10. Dysarthria (speech clarity - read or repeat words) - 0(Normal) 11. Extinction and Inattention (visual/tactile/auditory/spatial/personal) - 0(No abnormality) 1a. Level of Consciousness (LOC) - 0(Alert) 1b. Level of Consciousness (LOC) (Month \T\ Age) - 0(Both) 1c. LOC Commands (Open \T\ Closes Eyes/Living Supervisor) - 0(Both) 2. Best Gaze (Lateral Gaze Paresis) - 0(Normal) 3. Visual Field Loss - 0(No visual loss) 4. Facial Palsy - 0(Normal) 5a. Left Arm: Motor (10-second hold) - 0(No drift) 5b. Right Arm: Motor (10-second hold) - 0(No drift) 6a. Left Leg: Motor (5-second hold - always test supine) - 0(No drift) 6b. Right Leg: Motor (5-second hold - always test supine) - 0(No drift) 7. Limb Ataxia (finger/nose \T\ heel/mcnally - test with eyes open) - 0(Absent) 8. Sensory Loss (pinprick arms/legs/face) - 0(Normal) 9. Best Language: Aphasia (description/naming/reading) - 0(No aphasia) Initials: rajan Signatures: Dispatcher [employer] Curtis Almanza MD MD cha Rivera, Elizabeth, Reg Reg mr Jessica Castorena, Noemi Morales RN, RN RN ap3 Jenni Smtih RN RN ll1 Azucena Mccauley 7
--- NOTE | 2025-03-21 10:54 | EDPHYS ---
Physician Documentation [facility] Name: Lisa Bruno Age: 65 yrs Sex: Female : 1960 Arrival Date: 03/21/2025 Time: 07:49 Bed 7 Private MD: ED Physician Curtis Woods HPI: 03/21 09:53 This 65 yrs old Female presents to ER via Ambulatory with complaints of rajan Nausea/Vomiting. 09:53 The patient presents to the emergency department with nausea, vomiting, described as rajan clear fluid. Onset: The symptoms/episode began/occurred this morning. Possible causes: unknown. The symptoms are aggravated by movement, The symptoms are alleviated by remaining still. Associated signs and symptoms: Pertinent positives: dizzy, nv, sob. Severity of symptoms: At their worst the symptoms were moderate in the emergency department the symptoms have improved mildly. The patient has not experienced similar symptoms in the past. Historical: - Allergies: 08:00 Codeine; ll1 - Home Meds: 08:00 ozempic [Active]; ll1 - PMHx: 08:00 Diabetes mellitus; ll1 - PSHx: 08:00 Appendectomy; ll1 - Immunization history:: Adult Immunizations up to date. - Infectious Disease History:: Denies. - Social history:: Smoking status: Patient reports the use of cigarette tobacco products, smokes .25 packs per day. ROS: 09:54 Constitutional: Negative for fever, chills, and weight loss, Eyes: Negative for injury, rajan pain, redness, and discharge, ENT: Negative for injury, pain, and discharge, Neck: Negative for injury, pain, and swelling, Cardiovascular: Negative for chest pain, palpitations, and edema, Abdomen/GI: Negative for abdominal pain, nausea, vomiting, diarrhea, and constipation, Back: Negative for injury and pain, : Negative for injury, bleeding, discharge, and swelling, MS/Extremity: Negative for injury and deformity, Skin: Negative for injury, rash, and discoloration, Psych: Negative for depression, anxiety, suicide ideation, homicidal ideation, and hallucinations, Allergy/Immunology: Negative for hives, rash, and allergies, Endocrine: Negative for neck swelling, polydipsia, polyuria, polyphagia, and marked weight changes, Hematologic/Lymphatic: Negative for swollen nodes, abnormal bleeding, and unusual bruising, 09:54 Respiratory: Positive for shortness of breath, 09:54 Neuro: Positive for dizziness, weakness, Exam: 09:54 Constitutional: This is a well developed, well nourished patient who is awake, alert, rajan and in no acute distress. Head/Face: Normocephalic, atraumatic. Eyes: Pupils equal round and reactive to light, extra-ocular motions intact. Lids and lashes normal. Conjunctiva and sclera are non-icteric and not injected. Cornea within normal limits. Periorbital areas with no swelling, redness, or edema. ENT: Nares patent. No nasal discharge, no septal abnormalities noted. Tympanic membranes are normal and external auditory canals are clear. Oropharynx with no redness, swelling, or masses, exudates, or evidence of obstruction, uvula midline. Mucous membranes moist. Neck: Trachea midline, no thyromegaly or masses palpated, and no cervical lymphadenopathy. Supple, full range of motion without nuchal rigidity, or vertebral point tenderness. No Meningismus. Chest/axilla: Normal chest wall appearance and motion. Nontender with no deformity. No lesions are appreciated. Cardiovascular: Regular rate and rhythm with a normal S1 and S2. No gallops, murmurs, or rubs. Normal PMI, no JVD. No pulse deficits. Respiratory: Lungs have equal breath sounds bilaterally, clear to auscultation and percussion. No rales, rhonchi or wheezes noted. No increased work of breathing, no retractions or nasal flaring. Abdomen/GI: Soft, non-tender, with normal bowel sounds. No distension or tympany. No guarding or rebound. No evidence of tenderness throughout. Back: No spinal tenderness. No costovertebral tenderness. Full range of motion. Female : Normal external genitalia. Skin: Warm, dry with normal turgor. Normal color with no rashes, no lesions, and no evidence of cellulitis. MS/ Extremity: Pulses equal, no cyanosis. Neurovascular intact. Full, normal range of motion., bilateral aka Neuro: Awake and alert, GCS 15, oriented to person, place, time, and situation. Cranial nerves II-XII grossly intact. Motor strength 5/5 in all extremities. Sensory grossly intact. Cerebellar exam normal. Normal gait. Psych: Awake, alert, with orientation to person, place and time. Behavior, mood, and affect are within normal limits. 09:54 ECG was reviewed by the Attending Physician. 09:54 Musculoskeletal/extremity: ROM: intact in all extremities, full active range of motion, full passive range of motion, Circulation is intact in all extremities. Sensation intact. Compartment Syndrome exam of affected extremity: is normal. Weight bearing: able to fully bear weight, DVT Exam: No signs of deep vein thrombosis. no pain, no swelling, no tenderness, negative Homans' sign noted on exam, no appreciated bluish discoloration, no erythema, no increased warmth, Vital Signs: 08:00 BP 134 / 74; Pulse 79; Resp 16; Temp 97.6; Pulse Ox 100% on R/A; Weight 72.57 kg; ll1 Height 5 ft. 0 in. ; Pain 0/10; 10:53 BP 122 / 58; Pulse 75; Resp 16; Pulse Ox 98% ; Pain 0/10; pm7 11:39 BP 121 / 68; Pulse 83; Resp 17; Pulse Ox 100% ; ap3 08:00 Body Mass Index 31.25 (72.57 kg, 152.4 cm) ll1 08:00 Pain Scale: Adult ll1 10:53 Pain Scale: Adult pm7 NIH Stroke Scale Scores: 09:54 NIHSS Score: 0 rajan MDM: 07:52 Medical Screening Exam initiated rajan 09:56 Antibiotic administration: Not indicated. Differential diagnosis: Anemia Anxiety rajan Reaction asthma, Bronchitis CHF exacerbation, Chronic Obstructive Pulmonary Disease Nonspecific abd pain, gastritis, cholecystitis, pancreatitis, appendicitis, diverticulitis, viral gastroenteritis, gastroenteritis, Myocardial Infarction pneumonia, Pneumothorax Psychogenic pulmonary edema, Pulmonary Embolism reactive airway disease, Sepsis Unstable Angina. Differential diagnosis: cardiac arrhythmia, CVA, generalized weakness, GI bleed, hyperventilation, hypovolemia, idiopathic dizziness, near-syncope, syncope, TIA. Immunization status: Pneumococcal vaccine: within last 5 years. Influenza vaccine: within last 5 years. Data reviewed: vital signs, nurses notes, lab test result(s), EKG, radiologic studies, plain films. Consideration of Admission/Observation Escalation of care including admission/observation considered. I considered the following discharge prescriptions or medication management in the emergency department Medications were administered in the Emergency Department. See MAR. Independent interpretation of the following test(s) in the Emergency Department EKG: See my EKG interpretation above. Historians other than the Patient: pt well informerd. 03/21 07:53 Order name: Basic Metabolic Panel; Complete Time: 09:23 [facility] 03/21 07:53 Order name: CBC with Diff; Complete Time: :23 [facility] 03/21 07:53 Order name: LFT's; Complete Time: 09:23 [facility] 03/21 07:53 Order name: Magnesium; Complete Time: :23 [facility] 03/21 07:53 Order name: NT PRO-BNP; Complete Time: : [facility] 03/21 07:53 Order name: PT-INR; Complete Time: : [facility] 03/21 07:53 Order name: Troponin HS; Complete Time: : [facility] 03/21 07:53 Order name: Lipase; Complete Time: : [facility] 03/21 07:53 Order name: UA Rfx Piotr Cult if indicated; Complete Time: 11:34 [facility] 03/21 07:53 Order name: XRAY Chest (1 view); Complete Time: : [facility] 03/21 09:25 Order name: CT Head Brain wo Cont; Complete Time: 10:52 [facility] 03/21 09:25 Order name: CT Chest For PE Angio; Complete Time: 10:52 [facility] 03/21 09:25 Order name: US Carotid Artery Bilateral [facility] 03/21 07:53 Order name: Cardiac monitoring; Complete Time: 08:14 [facility] 03/21 07:53 Order name: EKG - Nurse/Tech; Complete Time: 08:13 [facility] 03/21 07:53 Order name: IV Saline Lock; Complete Time: 08:13 [facility] 03/21 07:53 Order name: Labs collected and sent; Complete Time: 08:13 [facility] 03/21 07:53 Order name: O2 Per Protocol; Complete Time: 08:03 [facility] 03/21 07:53 Order name: O2 Sat Monitoring; Complete Time: 08:03 [facility] EC:54 Rate is 74 beats/min. Rhythm is regular. QRS Wilson is Normal. QRS interval is normal. QT rajan interval is normal. No Q waves. T waves are Normal. No ST changes noted. Clinical impression: NSR w/ Non-specific ST/T Changes and No evidence of ischemia. Interpreted by me. Reviewed by me. Administered Medications: 08:34 Drug: NS 0.9% IV 1000 ml IV at 1000 ml once; to be given as a bolus over 60 minutes ll1 Route: IV; Rate: 1000 ml; Site: right antecubital; 09:37 Follow up: Response: No adverse reaction; IV Status: Completed infusion; IV Intake: ll1 1000ml 08:35 Drug: Aspirin PO Chewable Tablet 324 mg PO once; 81 mg tablets x 4 Route: PO; ll1 09:37 Follow up: Response: No adverse reaction ll1 08:35 Drug: Famotidine IVP 20 mg IVP once; dilute with 10 mL 0.9% NaCl; give over 2 minutes ll1 Route: IVP; Site: right antecubital; 09:37 Follow up: Response: No adverse reaction ll1 09:36 Drug: Meclizine PO 50 mg PO once Route: PO; ll1 11:39 Follow up: Response: No adverse reaction ap3 09:37 Drug: Ondansetron IVP 8 mg IVP once; over 2 minutes Route: IVP; Site: right antecubital;ll1 11:39 Follow up: Response: No adverse reaction; Nausea is decreased ap3 Disposition Summary: 03/21/25 10:53 Discharge Ordered Notes: Location: Home rajan Problem: new rajan Symptoms: have improved rajan Condition: Stable rajan Diagnosis - Benign paroxysmal vertigo, unspecified ear rajan - Vomiting rajan - Dyspnea rajan Followup: rajan - With: Private Physician - When: 2 - 3 days - Reason: Recheck today's complaints, Continuance of care, Re-evaluation by your physician Followup: rajan - With: Nick Theodore MD - When: 2 - 3 days - Reason: Recheck today's complaints, Re-evaluation by your physician Followup: rajan - With: Chloe Reyes MD - When: 2 - 3 days - Reason: Recheck today's complaints, Continuance of care, Re-evaluation by your physician Discharge Instructions: - Discharge Summary Sheet rajan - Benign Positional Vertigo rajan - Dizziness rajan - Nausea and Vomiting, Adult rajan - Nausea, Adult rajan - Vertigo rajan - Nausea and Vomiting, Adult, Enum-yr-Neiq rajan - Vertigo, Scua-pe-Lwia rajan - Dizziness, Labl-lo-Eskc rajan - Vomiting, Adult rajan Forms: - Medication Reconciliation Form rajan - Antibiotic Education rajan - Prescription Opioid Use rajan - Patient Portal Instructions rajan - Leadership Thank You Letter rajan Prescriptions: - ondansetron 4 mg Oral Tablet,disintegrating - take 1 tablet ORAL route every 6 hours as needed for nausea and vomiting; 24 rajan tablet; Refills: 0, Product Selection Permitted - Meclizine 25 mg Oral tablet - take 1 tablet ORAL route every 6 hours As needed; 30 tablet; Refills: 0, [facility] Product Selection Permitted - Pepcid 20 mg Oral tablet - take 1 tablet ORAL route every 12 hours for 21 days; 42 tablet; Refills: 0, [facility] Product Selection Permitted NIH Stroke Scale - NIH Stroke Score Date: 03/21/2025 Time: 09:54 Total Score = 0 10. Dysarthria (speech clarity - read or repeat words) - 0(Normal) 11. Extinction and Inattention (visual/tactile/auditory/spatial/personal) - 0(No abnormality) 1a. Level of Consciousness (LOC) - 0(Alert) 1b. Level of Consciousness (LOC) (Month \T\ Age) - 0(Both) 1c. LOC Commands (Open \T\ Closes Eyes/Tube Puller) - 0(Both) 2. Best Gaze (Lateral Gaze Paresis) - 0(Normal) 3. Visual Field Loss - 0(No visual loss) 4. Facial Palsy - 0(Normal) 5a. Left Arm: Motor (10-second hold) - 0(No drift) 5b. Right Arm: Motor (10-second hold) - 0(No drift) 6a. Left Leg: Motor (5-second hold - always test supine) - 0(No drift) 6b. Right Leg: Motor (5-second hold - always test supine) - 0(No drift) 7. Limb Ataxia (finger/nose \T\ heel/mcnally - test with eyes open) - 0(Absent) 8. Sensory Loss (pinprick arms/legs/face) - 0(Normal) 9. Best Language: Aphasia (description/naming/reading) - 0(No aphasia) Initials: [facility] Signatures: Dispatcher [employer] Curtis Almanza MD MD cha Lewis, Lynsay, RN RN ll1 Noemi Juarez RN ap3 Corrections: (The following items were deleted from the chart) 07:54 07:54 BASIC METABOLIC PANEL+C.LAB.BRZ ordered. EDMS EDMS 07:54 07:54 CBC+H.LAB.BRZ ordered. EDMS EDMS 07:54 07:54 HEPATIC FUNCTION+C.LAB.BRZ ordered. EDMS EDMS 07:54 07:54 MAGNESIUM+C.LAB.BRZ ordered. EDMS EDMS 07:54 07:54 PROBNP+C.LAB.BRZ ordered. EDMS EDMS 07:54 07:54 PROTIME (+INR)+COAG.LAB.BRZ ordered. EDMS EDMS 07:54 07:54 Troponin High Sensitivity+C.LAB.BRZ ordered. EDMS EDMS 07:54 07:54 LIPASE+C.LAB.BRZ ordered. EDMS EDMS 07:54 07:54 UA Rfx Piotr Cult if indicated+U.LAB.BRZ ordered. EDMS EDMS 07:54 07:54 Chest Single View+RAD.RAD.BRZ ordered. EDMS EDMS 09:25 09:25 Head Brain Wo Cont+CT.RAD.BRZ ordered. EDMS EDMS 09:25 09:25 Chest For PE Angio+CT.RAD.BRZ ordered. EDMS EDMS 09:25 09:25 Carotid Artery Bilateral+US.RAD.BRZ ordered. EDMS EDMS
[2025-03-21 11:26] LABS: Urine Microscopic Reflex YN NO UMIC
[2025-03-21 11:53] VITALS: TEMP 97.6
[2025-03-21 11:56] VITALS: BP 121/68; O2SAT 100
--- NOTE | 2025-03-21 12:48 | RAD REPORT ---
EXAM: US Carotid Artery Bilateral CLINICAL INDICATION: DIZZINESS TECHNIQUE: Real-time grayscale, color flow, and spectral Doppler sonographic images were obtained of the extracranial carotid system using a linear transducer. Arterial peak systolic velocities are recorded as follows. COMPARISON: No prior exam. FINDINGS: RIGHT: Common carotid artery: 62 cm/s Internal carotid artery: 79 cm/s Right ICA/CCA ratio: 1.3 Plaque Mild External carotid artery: 89 cm/s Vertebral artery: Antegrade LEFT: Common carotid artery: 108 cm/s Internal carotid artery: 83 cm/s Left ICA/CCA ratio: 0.8 Plaque Mild External carotid artery: 59 cm/s Vertebral artery: Antegrade IMPRESSION: No hemodynamically significant stenosis (greater than 50%) within the extracranial internal carotid a rteries. The degrees of stenosis, if any, are quantified according to the consensus statement of the Society o f Radiologists in Ultrasound (SRUS). Please refer to Erlin E, Ramirez C, Tahira G et al. Carotid Artery Stenosis: Solis-Scale and Doppler US Diagnosis--Society of Radiologists in Ultrasound Consensus Conference. Radiology. 2003;229(2):340-6. doi:10.1148/[id number]
== END 2025-03-21 11:47 | disposition home or self-care (01) ==
LOC: ER 07:49
DX: H81.10 Benign paroxysmal vertigo, unspecified ear (principal); R06.00 Dyspnea, unspecified; E11.9 Type 2 diabetes mellitus without complications; F17.210 Nicotine dependence, cigarettes, uncomplicated
CPT/HCPCS: 96361; 93005; 85025; 80048; 36415; 83735; 85610; 80076; 81003; 84484; 83690; 83880; 70450; 71275; 71045; 93880; 96375; 96374; 99285; Q9967; J8597; J2405; J7030